=== PATIENT | male | born 1965 | race Caucasian/White ===

== ENCOUNTER 2018-03-29 12:43 | Emergency (ER) | payer BC ==
--- OUTSIDE RECORDS SUMMARY | 2018-03-29 12:52 | XMS REPORT ---
:1965 External Reference #:[id number] Author Organization [email or web address] Address [address] [address] Phone [phone] Care Team Providers Name Role Phone Alexx Gilliam MD Primary Care Physician Unavailable Payers Type Date Identification Numbers Payment Provider Subscriber Commercial Policy Number: [id number] [employer] Jasmyn Bell PayID: [id number] [address] [address] [place] [address] Problems Description No Information Family History Date Family Member(s) Problem(s) Comments General Heart Disease Social History Type Date Description Comments Lives With Spouse 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 ETOH Use Denies alcohol use Smoking Patient has never smoked Exercise Type/Frequency Exercises regularly Allergies, Adverse Reactions, Alerts Date Description Reaction Status Severity Comments 09/29/2015 Penicillin active 03/19/2018 Erythromycin active stomach issues Medications Medication Date Status Form Strength Qnty SIG Indications Ordering Provider Naproxen Active Unknown No Active 09/29/2015 Hx Unknown Medications - 01/21/2018 Medications Administered in Office Medication Date Status Form Strength Qnty SIG Indications Ordering Provider Depomedrol Administered Injection Zac F 40MG 018 MD Hernando Vital Signs Date Vital Result Comment 03/19/2018 Height 71.5 inches 5'11.50" Weight 197.00 lb Heart Rate 60 /min BP Systolic Sitting 124 mmHg BP Diastolic Sitting 62 mmHg Respiratory Rate 16 /min Body Temperature 97.1 F Pain Level 3 BMI (Body Mass Index) 27.1 kg/m2 03/04/2018 Height 71.5 inches 5'11.50" Weight 197.00 lb Heart Rate 76 /min BP Systolic 110 mmHg BP Diastolic 68 mmHg Body Temperature 97.8 F Pain Level 6 with use BMI (Body Mass Index) 27.1 kg/m2 01/21/2018 Height 71.5 inches 5'11.50" Weight 197.00 lb Heart Rate 64 /min Respiratory Rate 14 /min Body Temperature 97.6 F Pain Level 6 BMI (Body Mass Index) 27.1 kg/m2 09/29/2015 Height 72 inches 6'0" Weight 195.00 lb Heart Rate 86 /min BP Systolic Sitting 128 mmHg BP Diastolic Sitting 88 mmHg BMI (Body Mass Index) 26.4 kg/m2 Results Description No Information Procedures Date CPT Code Description Status 01/21/2018 86275 Inject/Drain Joint/Bursa Major Completed Encounters Type Date Location Provider CPT E/M Dx Office Visit 03/04/2018 [facility], [address] M75.51 2:45p [place] [facility] S46.011D S46.111D Office Visit 01/21/2018 2:00p [facility], [address] M75.51 [facility] [place] [facility] Office Visit 09/29/2015 11:00a [facility] Fitzgerald, [address]57 M77.02 Of [facility] AT [facility] Plan of Care Future Appointment(s):04/15/2018 3:15 pm - Zac Vlilagomez MD at [facility] [place]/2018 - [facility] Villagomez, MDM75.51 Bursitis of right shoulderFollow up:Follow up: to ORS46.011D Strain of musc/tend the rotator cuff of right shoulder, subsS46.111D Strain of musc/fasc/tend long hd bicep, right arm, subs
[2018-03-29 14:02] VITALS: BP 137/65
--- NOTE | 2018-03-29 14:11 | UC ---
Skin Complaint HPI - HPI Summary HPI Summary: 52 y/o male presents to the urgent care c/o tick bite in his left wrist he noticed about 2hrs ago and he removed it. Tick is very small and was not engorged. He also had a tick bite about 14 week ago, but he didn't get any medical assistance. Pt denies fever, SOB, chest pain, joint pains, BLANCHARD, abdominal pain, N/V/D - History of Current Complaint Time Seen by Provider: 03/29/18 13:58 Stated Complaint: TICK BITE Hx Obtained From: Patient Onset/Duration: Sudden Onset, Lasting Hours - 2 hrs, Resolved - removed tick Skin Exposure Onset/Duration: Hours Ago - 2 hrs ago Timing: Constant Onset Severity: Mild Current Severity: Mild Pain Intensity: 0 Pain Scale Used: 0-10 Numeric Location: Discrete - left wrist Character: Pruritus, Redness Aggravating Factor(s): Touch - touch Alleviating Factor(s): Other - removal of tick Related History: Possible Reaction to: Insect - Allergy/Home Medications Allergies/Adverse Reactions: Allergies Allergy/AdvReac Type Severity Reaction Status Date / Time erythromycin base Allergy GI Upset Verified 03/29/18 13:59 Penicillins Allergy Rash Verified 03/29/18 13:59 Review of Systems Constitutional: Negative Skin: Rash - left wrist tick bite Eyes: Negative ENT: Negative Respiratory: Negative Cardiovascular: Negative Gastrointestinal: Negative Genitourinary: Negative Motor: Negative Neurovascular: Negative Musculoskeletal: Negative Neurological: Negative Psychological: Negative Is Patient Immunocompromised?: No All Other Systems Reviewed And Are Negative: Yes PMH/Surg Hx/FS Hx/Imm Hx Previously Healthy: Yes - Pt denies PMHX - Surgical History Surgical History: Yes Surgery Procedure, Year, and Place: LEFT KNEE X2 OR[place]OSCOPIC, 2008, 2010, [facility] CHEST SURGERY TO REMOVE INFECTED SAC, 2009, [place] VASECTOMY, 1997 - Family History Known Family History: Positive: Cardiac Disease, Hypertension - Social History Occupation: Employed Full-time Lives: With Family Alcohol Use: None Substance Use Type: None Smoking Status (MU): Never Smoked Tobacco Physical Exam - Summary Physical Exam Summary: Vital Signs Reviewed: Yes General: well developed, well nourished female sitting in the examining table w/ o any apparent distress. Eyes: Positive: Conjunctiva Clear - PERRLA, EOMI ENT: Positive: Normal ENT inspection, Hearing grossly normal, Pharynx normal, TMs normal Neck: Positive: Supple, Nontender, No Lymphadenopathy Respiratory: Positive: Chest nontender, Lungs clear, Normal breath sounds Cardiovascular: Positive: RRR, No Murmur, Pulses Normal Abdomen Description: Positive: Nontender, No Organomegaly, Soft. Negative: CVA Tenderness (R), CVA Tenderness (L) Bowel Sounds: Positive: Present Musculoskeletal: Positive: Strength Intact, ROM Intact, No Edema Neurological Exam: Normal Psychological Exam: Normal Skin: Positive: rashes - Lateral aspect of eft wrist with tick bite with surrounding erythema, non tender to palpation. tick no longer present, no swelling or drainage observed. Triage Information Reviewed: Yes Course/Dx - Course Course Of Treatment: 52 y/o male presents to the urgent care c/o tick bite in his left wrist he noticed about 2hrs ago and he removed it. Tick is very small and was not engorged. He also had a tick bite about 14 week ago, but he didn't get any medical assistance. Pt denies fever, SOB, chest pain, joint pains, BLANCHARD, abdominal pain, N/V/D. Hx obtained. Pt w/ Lateral aspect of eft wrist with tick bite with surrounding erythema, non tender to palpation. tick no longer present, no swelling or drainage observed on examination.Antibiotic prophylaxis with Doxycycline given to the patient to prevent lyme Disease.. Pt tolerated well medication. Pt advised to observe the area for the development or Erythema Migrans for up to 30 days following exposure. Advised if he develops fever or erythema Migrans to return to the clinic or PCP for further treatment .Pt understood and agreed with plan of care. - Differential Diagnoses - Skin Complaint Differential Diagnoses: Abscess, Cellulitis, MRSA, Tick Born Illness, Other - insect bite , bee sting - Diagnoses Provider Diagnoses: 1- left wrist tick bite Discharge - Sign-Out/Discharge Documenting (check all that apply): Discharge/Admit/Transfer - D/C home - Discharge Plan Condition: Stable Disposition: HOME Patient Education Materials: Tick Bite (ED) Referrals: Alexx Gilliam MD [Primary Care Provider] - 2 Weeks [place] BLACK,Dameon Moran [Medical Doctor] - If Needed Additional Instructions: 1- Please observe the area for the development or Erythema Migrans for upto 30 days following exposure. Components of the tick saliva can cause transient erythema that should not be confused with Erythema Migrans. If you develop the bull's eye rash, fever, joint pains please return to the urgent care or f/u with your PCP for further management. 2-Antibiotic prophylaxis with Doxycycline was given to you today to prevent lyme Disease. Lyme serology can be drawn in 2 weeks with your PCP to r/o Lyme disease since there is probability of negative results at early exposure. - Billing Disposition and Condition Condition: STABLE Disposition: Home
[2018-03-29] MEDS ORDERED: DOXYcycline CAP(*) 100 MG PO ONE (14:12)
== END 2018-03-29 14:20 | disposition home or self-care (01) ==
LOC: UCCORT 12:43
DX: S60.862A Insect bite (nonvenomous) of left wrist, initial encounter (principal); W57.XXXA Bitten or stung by nonvenomous insect and other nonvenomous arthropods, initial encounter; Y92.9 Unspecified place or not applicable; Z88.3 Allergy status to other anti-infective agents; Z88.0 Allergy status to penicillin
CPT/HCPCS: 99212; A9270-GY; G0463

== ENCOUNTER 2018-04-03 08:46 | Day surgery (SDC) | payer BC ==
[~2018-04-03 08:46] MED LIST: Buffered Lidocaine 0.9% SYRIN* 5 ML/SYR SYRINGE INTRADERM ONE; Dexamethasone IV* 4 MG/ML 1 ML (4 MG) IV SLOW PU ONE; Famotidine IV* 10 MG/ML 2 ML (20 mg) IV ONE; Ondansetron ODT TAB* 4 MG PO ONE
[2018-04-03] MEDS ORDERED: Famotidine IV* 10 MG/ML 2 ML (20 mg) ONE (08:55)
[2018-04-03] MEDS ORDERED: Ondansetron ODT TAB* 4 MG ONE (08:56)
[2018-04-03] MEDS ORDERED: Clindamycin 900 MG IVPREMIX(* 900 MG/50 ML SDV IV ONE (08:56)
[2018-04-03] MEDS ORDERED: Dexamethasone IV* 4 MG/ML 1 ML (4 MG) ONE (08:56)
[2018-04-03] MEDS ORDERED: Midazolam* 1 MG/ML 5 ML VIAL (5 MG) ONE (09:32)
[2018-04-03] MEDS ORDERED: Atracurium* 10 MG/ML 10 ML VIAL ONE (09:32)
[2018-04-03] MEDS ORDERED: fentaNYL* 50 MCG/ML 2 ML VIAL (100 MCG VIAL) ONE (09:32)
[2018-04-03] MEDS ORDERED: Propofol* 10 MG/ML 20 ML BTL IV PUSH ONE (09:33)
[2018-04-03] MEDS ORDERED: EPINEPHRINE 1 MG/ML 1 ML VIAL ONE (09:54)
[2018-04-03] MEDS ORDERED: Bupivacaine 0.5% SDV PF* 30ML VIAL ONE (09:54)
[2018-04-03] MEDS ORDERED: ROPIVACAINE 5 MG/ML 30 ML BTL (0.5%) ONE (10:34)
[2018-04-03] MEDS ORDERED: Glycopyrrolate IV* 0.2 MG/ML 1 ML VIAL ONE (10:56)
[2018-04-03] MEDS ORDERED: DiMENhydriNATE IV* 50 MG/ML VIAL IV PUSH PRN (11:43)
[2018-04-03] MEDS ORDERED: Ondansetron INJ* 2 MG/ML VIAL IV PRN (11:43)
[2018-04-03] MEDS ORDERED: oxyCODONE/Acetamin 5/325 MG* TAB PO PRN (11:43)
[2018-04-03] MEDS ORDERED: Naloxone* 0.4 MG/ML 1 ML VIAL IV PRN (11:43)
[2018-04-03] MEDS ORDERED: HYDROmorphone INJ* 1 MG/ML CARPUJECT SYRINGE IV PRN (11:43)
[2018-04-03] MEDS ORDERED: fentaNYL* 50 MCG/ML 2 ML VIAL (100 MCG VIAL) IV PRN (11:43)
[2018-04-03 14:18] VITALS: BP 123/74
--- NOTE | 2018-04-07 21:41 | OP ---
DATE OF OPERATION: 04/03/18 - [facility] DATE OF : 67 SURGEON: Zac Villagomez MD WASTE CHOPPER: ARLIN Hernandez A physician cafeteria assistant was required for the length of the procedure for positioning, assistance with instrumentation, and closure. ANESTHESIOLOGIST: Dr. Ghulam Padilla ANESTHESIA: General anesthesia, interscalene block regional anesthesia. PRE-OP DIAGNOSES: 1. Right shoulder proximal biceps tendinitis and possible superior labrum tear. 2. Right shoulder subacromial bursitis and mild acromioclavicular joint arthritis. 3. Mild right shoulder glenohumeral joint osteoarthritis. POST-OP DIAGNOSES: 1. Right shoulder proximal biceps tendinitis. 2. Right shoulder subacromial bursitis and impingement. 3. Right shoulder acromioclavicular joint osteoarthritis. 4. Mild right shoulder glenohumeral joint osteoarthritis. 5. Right shoulder capsulitis. OPERATIVE PROCEDURE: 1. Right shoulder evaluation under anesthesia. 2. Right shoulder manipulation under anesthesia. 3. Right shoulder arthroscopic subacromial decompression. 4. Right shoulder arthroscopic distal clavicle resection. 5. Right shoulder arthroscopic limited debridement including release of biceps tendon. ANTIBIOTICS: Clindamycin 900 mg IV. IV FLUIDS: 1000 cc crystalloid. EYTD-AD-HYAP TIME: 49 minutes. ARTHROSCOPY FLUID: 4.5 bags, each with 3 L in them for a total of 13.5 L. SPECIMEN: None. IMPLANTS: None. COMPLICATIONS: None. ESTIMATED BLOOD LOSS: Minimal. 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 The patient responded insufficiently to the nonoperative management and opted for surgery. I made the above mentioned diagnoses preoperatively. We spoke about evaluation and treatment of the patient's biceps and superior labrum. I offered the patient biceps tenotomy or open proximal biceps tenodesis. He considered and opted for tenotomy. Discussed risks and potential complications of surgery including bleeding, infection, nerve or blood vessel injury, shoulder pain, stiffness, osteoarthritis. DESCRIPTION OF PROCEDURE: In preoperative holding, the patient signed a written consent. Operative extremity was marked in preoperative holding. The patient underwent a regional interscalene nerve block by Dr. Padilla. The patient was then taken to the operating room. The patient was laid supine and general anesthesia was instituted. A mini time-out was performed. Evaluation under anesthesia demonstrated limitations, severe on forward and internal rotation. I, therefore, decided to do a manipulation under anesthesia. I obtained an improvement of 30 to 40 additional degrees of range of motion of both forward flexion and internal rotation. The final range of motion on the table was 180 degrees of forward flexion, 90 degrees of external and 80 degrees of internal rotation. The patient was then placed in the lateral decubitus position with the right shoulder side up, axillary roll. All bony prominences padded. Right shoulder on longitudinal traction, 15 pounds, appropriate forward flexion and abduction. Prepped and draped. Surgical time-out performed. Spinal needle was placed into the right shoulder glenohumeral joint from posterior. 30 cc normal saline infused. Right shoulder posterior portal made per standard technique. Started diagnostic arthroscopy. No articular cartilage injuries. No spurs noted or significant thinning of cartilage noted. No rotator cuff tendon injury appreciated. I looked at the subscapularis in a variety of positions. Entered from anterior with an arthroscopic shaver after establishing an anterior glenohumeral joint portal under direct visualization. Evaluated the biceps tendon and superior labrum. The patient had a thick sleeve of red synovitic tissue along the biceps tendon proximally consistent with a diagnosis of proximal biceps tendinosis and tendinitis. There was also some inflamed tissue about the outlet where the biceps tendon exited the articular space, joint. Therefore, the biceps appeared to be a clear pain generator. I made the decision to release the biceps tendon. I entered an arthroscopic scissors and cut the biceps near its origin. I used an arthroscopic shaver to smooth out the superior labrum. No loose bodies in the axillary recess or any significant pathology about the glenohumeral joint. I next withdrew all fluid and instruments from the glenohumeral joint and moved to the subacromial space from anterior and posterior. There is bursitis. I established a lateral subacromial portal and use it to enter my arthroscopic shaver and debrided a significant amount of bursitis tissue on that layer. I evaluated the rotator cuff and appreciated no tear. I then performed a subacromial decompression, cleaning off the undersurface with a vapor cautery device and then using a tata to dissect, resect up to 8 mm of the inferior aspect of the anterior acromion. I then used a cautery to debride the bursitic tissue about the AC joint and removed 8 mm of the distal end of the clavicle. I next removed instruments and fluid from the subacromial space. Closed skin incisions with [id number] in 12 stitches using nylon 4.0 suture. Xeroform, 4 x 4s, ABDs, foam tape. Sling without abduction pillow. Cooling unit. DISPOSITION: The patient was extubated and transferred to the PACU. The patient was sent home with Percocet as needed for pain control and enteric- coated aspirin b.i.d. x14 days for DVT prophylaxis. The patient will follow up in clinic 10 to 14 days postoperatively. He is to start physical therapy immediately as soon as he can get an appointment. He will follow wound care instructions and he will wean out of the sling as soon as possible. [id number]/CPS #: [id number] MTDD
== END 2018-04-03 14:19 | disposition home or self-care (01) ==
LOC: OR 08:46
PROVIDERS: ATTEND Orthopaedic Surgery
DX: M75.51 Bursitis of right shoulder (principal); M75.21 Bicipital tendinitis, right shoulder; M75.41 Impingement syndrome of right shoulder; M19.011 Primary osteoarthritis, right shoulder; M75.01 Adhesive capsulitis of right shoulder; R00.2 Palpitations; G89.18 Other acute postprocedural pain
CPT/HCPCS: A9270-GY; J1100; J2250; J2704; J2795; J3010

== ENCOUNTER 2019-05-19 08:56 | Emergency (ER) | payer BC ==
[2019-05-19 09:13] VITALS: BP 129/80
--- NOTE | 2019-05-19 10:02 | UC ---
Headache HPI - HPI Summary HPI Summary: 53-year-old male comes in with a chief complaint of headache. 2 days ago the patient woke up with the headache. The day before he felt well. Headache is in the right side of his head into the right I. At its worse it's about an 8 out of 10. With taking [id number] medications he get about a 4 out of 10 but the headache never goes away. Patient does not have a history of migraines or chronic headaches. Headache it's worse with coughing or laying down. Is keeping him awake at night. He notices partial blurry vision in the right eye. He reports blurred vision of the left field of the right I. Denies any photophobia or difficulty with speech or weakness or numbness. - History Of Current Complaint Chief Complaint: UCHeadache Stated Complaint: HEADACHE Time Seen by Provider: 05/19/19 09:42 Pain Intensity: 8 - Allergies/Home Medications Allergies/Adverse Reactions: Allergies Allergy/AdvReac Type Severity Reaction Status Date / Time erythromycin base Allergy GI Upset Verified 05/19/19 09:14 Penicillins Allergy Rash Verified 05/19/19 09:14 Home Medications: Home Medications NK [No Home Medications Reported] 05/19/19 [History Confirmed 05/19/19] PMH/Surg Hx/FS Hx/Imm Hx Previously Healthy: Yes - Surgical History Surgical History: Yes Surgery Procedure, Year, and Place: LEFT KNEE X2 ORTHOSCOPIC, 2008, 2010, [facility] CHEST SURGERY TO REMOVE INFECTED SAC, 2009, [facility]. VASECTOMY, 1997 - Family History Known Family History: Positive: Cardiac Disease, Hypertension - Social History Alcohol Use: None Substance Use Type: None Smoking Status (MU): Never Smoked Tobacco Review of Systems All Other Systems Reviewed And Are Negative: Yes Constitutional: Positive: Negative Skin: Positive: Negative Eyes: Positive: Blurred Vision ENT: Positive: Negative Respiratory: Positive: Negative Cardiovascular: Positive: Negative Gastrointestinal: Positive: Negative Motor: Positive: Negative Neurovascular: Positive: Negative Musculoskeletal: Positive: Negative Neurological: Positive: Headache Psychological: Positive: Negative Is Patient Immunocompromised?: No Physical Exam Triage Information Reviewed: Yes Appearance: Well-Appearing, Well-Nourished, Pain Distress - MILD Vital Signs: Initial Vital Signs Temp 97.8 F 05/19/19 09:11 Pulse 80 05/19/19 09:11 Resp 18 07/22/19 09:11 BP 129/80 05/19/19 09:11 Pulse Ox 100 05/19/19 09:11 Vital Signs Reviewed: Yes Eyes: Positive: Other: - On exam patient reports his left visual field of his right it is blurred. Denies any other vision changes.. Negative: Conjunctiva Inflamed, Discharge ENT: Positive: Pharynx normal, TMs normal, Other - Temples are nontender to palpation. Neck: Positive: Supple Respiratory: Positive: Lungs clear, Normal breath sounds, No respiratory distress Cardiovascular: Positive: RRR Musculoskeletal Exam: Normal Musculoskeletal: Positive: Strength Intact, ROM Intact Neurological: Positive: Alert, Muscle Tone Normal, Other: - Patient reports blurred vision in the left visual field of the right I. No other focal neurologic deficits found on examination. Psychological Exam: Normal Psychological: Positive: Age Appropriate Behavior Skin Exam: Normal Headache Course/Dx - Course Course Of Treatment: Due to the intensity of the headache the duration of the headache and the blurred vision I recommended further evaluation in the emergency department. Patient prefers to go by POV. - Differential Dx/Diagnosis Provider Diagnosis: Headache, Blurred vision, right eye Discharge - Sign-Out/Discharge Documenting (check all that apply): Patient Departure All imaging exams completed and their final reports reviewed: No Studies - Discharge Plan Condition: Stable Disposition: HOME-RECOMMEND TO ED Referrals: Alexx Gilliam MD [Primary Care Provider] - Additional Instructions: GO DIRECTLY TO THE EMERGENCY DEPARTMENT FOR FURTHER EVALUATION OF YOUR HEADACHE. - Billing Disposition and Condition Condition: STABLE Disposition: Home-Recommend to ED
== END 2019-05-19 10:09 | disposition home health service (06) ==
LOC: UCEAST 08:56
DX: R51 Headache (principal); H53.8 Other visual disturbances; Z88.0 Allergy status to penicillin
CPT/HCPCS: 99212; G0463

== ENCOUNTER 2019-05-19 10:29 | Emergency (ER) | payer BC ==
[2019-05-19] MEDS ORDERED: diPHENhydraMINE PO* 25 MG PO ONE (12:14)
[2019-05-19] MEDS ORDERED: NS 0.9% 1000 ML** 1,000 ML IV ONE (12:14)
[2019-05-19] MEDS ORDERED: PROCHLORPERAZINE INJ 5 MG/ML 2 ML VIAL IV ONE (12:14)
[2019-05-19] MEDS ORDERED: Ketorolac INJ* 30 MG/ML 1 ML VIAL IV PUSH ONE (12:15)
--- NOTE | 2019-05-19 12:15 | ED ---
Headache - HPI Summary HPI Summary: Pt. is a 53 y.o male who presents to the ER for headaches x 3 days. Pt. states pain is located behind his right eye and temporal region. He notes mild blurred vision on the left. Pt. notes he woke up with h/a 3 days ago and it slowly progressed. Pt. denies hx of migraines. HE has no past medical hx. Pt. denies injury, recent illness, fever, neck pain, numbness, tingling, weakness. Pt. states he has tried numerous OTC analgesics and his 's migraine medication without improvement. Sxs are moderate in severity. No current modifying factors. Denies recent tick bites or rashes. - History Of Current Complaint Chief Complaint: EDHeadache Stated Complaint: HEADACHE SINCE SUNDAY PER PT Time Seen by Provider: 05/19/19 11:46 Hx Obtained From: Patient - Allergies/Home Medications Allergies/Adverse Reactions: Allergies Allergy/AdvReac Type Severity Reaction Status Date / Time erythromycin base Allergy GI Upset Verified 05/19/19 09:14 Penicillins Allergy Rash Verified 05/19/19 09:14 PMH/Surg Hx/FS Hx/Imm Hx Previously Healthy: Yes Endocrine/Hematology History: Denies: Hx Diabetes Cardiovascular History: Reports: Other Cardiovascular Problems/Disorders - skips a beat at times, neg testing Denies: Hx Hypertension, Hx Pacemaker/ICD History: Denies: Hx Renal Disease Musculoskeletal History: Reports: Hx Bursitis - right shoulder Denies: Other Musculoskeletal History Sensory History: Reports: Hx Contacts or Glasses - reading glasses Denies: Hx Hearing Aid Opthamlomology History: Reports: Hx Contacts or Glasses - reading glasses Psychiatric History: Denies: Hx Panic Disorder - Surgical History Surgery Procedure, Year, and Place: LEFT KNEE X2 ORTHOSCOPIC, 2008, 2010, [facility]. CHEST SURGERY TO REMOVE INFECTED SAC, 2009, [place] VASECTOMY, 1997 Hx Anesthesia Reactions: No Infectious Disease History: No Infectious Disease History: Denies: Traveled Outside the [place] in Last 30 Days - Family History Known Family History: Positive: Cardiac Disease, Hypertension - Social History Occupation: Employed Full-time Lives: With Family Alcohol Use: None Substance Use Type: Reports: None Smoking Status (MU): Never Smoked Tobacco Review of Systems Constitutional: Negative Negative: Fever, Chills Positive: Photophobia, Blurred Vision ENT: Negative Cardiovascular: Negative Respiratory: Negative Gastrointestinal: Negative Genitourinary: Negative Musculoskeletal: Negative Skin: Negative Positive: Headache. Negative: Weakness, Paresthesia, Numbness, Syncope All Other Systems Reviewed And Are Negative: Yes Physical Exam Triage Information Reviewed: Yes Vital Signs On Initial Exam: Initial Vitals Temp Pulse Resp BP Pulse Ox 97.4 F 61 18 143/85 100 05/19/19 10:30 05/19/19 10:30 05/19/19 10:30 05/19/19 10:30 05/19/19 10:30 Vital Signs Reviewed: Yes Appearance: Positive: Well-Appearing - Pt sitting up in bed in NAD. Skin: Positive: Warm, Dry Head/Face: Positive: Normal Head/Face Inspection Eyes: Positive: Normal, EOMI, JOSE E ENT: Positive: Pharynx normal, TMs normal Neck: Positive: Supple, Nontender. Negative: Nuchal Rigidity Respiratory/Lung Sounds: Positive: Clear to Auscultation, Breath Sounds Present Cardiovascular: Positive: Normal, RRR Musculoskeletal: Positive: Normal, Strength/ROM Intact Neurological: Positive: Normal, Sensory/Motor Intact, Alert, Oriented to Person Place, Time, CN Intact II-III, Normal Gait, Finger to Nose - normal, Facial Symmetry, Speech Normal. Negative: Facial Droop, Pronator Drift Present Psychiatric: Positive: Affect/Mood Appropriate - Meme Coma Scale Best Eye Response: 4 - Spontaneous Best Motor Response: 6 - Obeys Commands Best Verbal Response: 5 - Oriented Coma Scale Total: 15 Diagnostics - Vital Signs Vital Signs Temp Pulse Resp BP Pulse Ox 05/19/19 10:30 97.4 F 61 18 143/85 100 - Laboratory Result Diagrams: 05/19/19 12:21 05/19/19 12:21 Lab Statement: Any lab studies that have been ordered have been reviewed, and results considered in the medical decision making process. Headache Course/Dx - Course Course Of Treatment: Pt. presenting with the above sxs. Afebrile with stable VS. Pt. has no neuro deficits on exam. Given new onset h/a and vision blurriness , will obtain labs and brain ct to r/o mass, bleeding, signs of recent stroke. Pt. given migraine cocktail consisting of fluids, toradol, benadryl, and compazine. Labs are unremarkable other than mildly elevated crp, sed rate is normal. Brain ct is negative per radiology. On re-exam pt.'s sxs have completely resolved and he is feeling much better. WIll have him fu with pcp. To increase fluids. Will return to ER if sxs change or worsen. Pt. understands and agrees with plan. Pending lyme titer. - Diagnoses Differential Diagnosis/HQI/PQRI: Migraine, Sinus Headache, Subarachnoid Hemorrhage, Temporal Arteritis, Viral Syndrome Provider Diagnoses: Cephalgia Discharge - Sign-Out/Discharge Documenting (check all that apply): Patient Departure Patient Received Moderate/Deep Sedation with Procedure: No - Discharge Plan Condition: Improved Disposition: HOME Patient Education Materials: Acute Headache (ED) Referrals: Alexx Gilliam MD [Primary Care Provider] - Additional Instructions: Follow up PCP within one week for recheck Increase fluids and rest Return to ER if symptoms change or worsen - Billing Disposition and Condition Condition: IMPROVED Disposition: Home
[2019-05-19 12:43] LABS: ABS Lymphocytes 1.1 10^3/ul (1.0-4.8); ABS Monocytes 0.7 10^3/ul (0-0.8); ABS Neutrophils 4.3 10^3/ul (1.5-7.7); Eosinophil % 0.8 %; Hematocrit 45 % (42-52); Hemoglobin 15.8 g/dL (14.0-18.0); Lymphocyte % 17.4 %; Mean Corpuscular HGB Conc 36 g/dL (31-36); Mean Corpuscular Hemoglobin 30 pg (27-31); Mean Corpuscular Volume 86 fL (80-94); Mean Platelet Volume 7.5 fL (7.4-10.4); Nucleated Red Blood Cells % 0.2; Platelet Count 207 10^3/uL (150-450); Red Blood Count 5.19 10^6 /uL (4.18-5.48); Red Cell Distribution Width 14 % (10-15); White Blood Count 6.2 10^3/uL (3.5-10.8)
[2019-05-19 12:48] LABS: Albumin 4.5 g/dL (3.2-5.2); Albumin/Globulin Ratio 1.4 (1-3); BUN/Creatinine Ratio 14.6 (8-20); C Reactive Protein 34.55 mg/L (<8.01); Calcium 9.5 mg/dL (8.6-10.3); EGFR African American 99.5 (>60); EGFR Non-African American 82.3 (>60); Globulin 3.2 g/dL (2-4); Potassium 4.4 mmol/L (3.5-5.0); Total Bilirubin 1.6 mg/dL (0.2-1.0); Total Protein 7.7 g/dL (6.4-8.9)
[2019-05-19 13:21] VITALS: BP 116/69
[2019-05-19 14:47] LABS: Erythrocyte Sed Rate 16 mm/Hr (0-19)
[2019-05-21 00:01] LABS: B garinii/B afzelii PCR Negative (Negative); B mayonii PCR Negative (Negative)
== END 2019-05-19 15:09 | disposition home or self-care (01) ==
LOC: ED 10:29
DX: R51 Headache (principal); Z88.1 Allergy status to other antibiotic agents; Z88.0 Allergy status to penicillin
CPT/HCPCS: 36415; 70450; 80053; 85025; 85652; 86140; 87476; 87798; 96361; 96374; 96375; 99282; A9270-GY; J0780; J1885

== ENCOUNTER 2019-05-22 07:00 | Emergency (ER) | payer BC ==
--- NOTE | 2019-05-22 07:31 | UC ---
Eye Complaint HPI - HPI Summary HPI Summary: 53 year old male with eye complaint. Patient was seen at the [facility] for a severe headache that was on day 3, he was sent to [facility] ED and treated for a migraine H/A. He states he was feeling better until that night when he states he started with running temps of 101-102. also c/o pain that is above his R eye today and some blurry vision. In the days before, the pain was on the R side of his head. Also of note is an area on his L wrist that is red, blanchable and non-painful that was were he was wearing a new wrist watch. Also has had a fever that broke today. No vision loss. Also states to have had 3 tick bites at least this year. Very active outdoors. No PCP he states. Nothing improves symptoms. Bending over worsens pressure in the eye and sinus area around the eye. [ End ] - History of Current Complaint Stated Complaint: RIGHT EYE PAIN,FEVER Time Seen by Provider: 05/22/19 07:27 Hx Obtained From: Patient Onset/Duration: Gradual Onset Severity Initially: Moderate Severity Currently: Moderate Alleviating Factor(s): Nothing Associated Signs And Symptoms: Positive: Fever. Negative: Photophobia, Drainage (Clear), Drainage (Purulent), Swelling - Risk Factors Penetrating Injury Risk Factor: Negative - Allergies/Home Medications Allergies/Adverse Reactions: Allergies Allergy/AdvReac Type Severity Reaction Status Date / Time Penicillins Allergy Rash Verified 05/19/19 09:14 erythromycin base AdvReac GI Upset Verified 05/22/19 07:35 Home Medications: Home Medications Acetaminophen [Acetaminophen Extra Strength] 1,000 mg PO BID PRN 05/22/19 [ History Confirmed 05/22/19] Ibuprofen 600 mg PO Q2HR PRN 05/22/19 [History Confirmed 05/22/19] PMH/Surg Hx/FS Hx/Imm Hx Previously Healthy: Yes - Surgical History Surgical History: Yes Surgery Procedure, Year, and Place: LEFT KNEE X2 ORTHOSCOPIC, 2008, 2010, [place] [facility]. CHEST SURGERY TO REMOVE INFECTED SAC, 2009, [place]. VASECTOMY, 1997 - Family History Known Family History: Positive: Cardiac Disease, Hypertension - Social History Alcohol Use: None Substance Use Type: None Smoking Status (MU): Never Smoked Tobacco Review of Systems All Other Systems Reviewed And Are Negative: Yes Constitutional: Positive: Fever, Fatigue Skin: Positive: Rash Eyes: Positive: Blurred Vision, Eye Redness ENT: Positive: Sinus Pain/Tenderness Neurological: Positive: Headache Is Patient Immunocompromised?: No Physical Exam Triage Information Reviewed: Yes Appearance: Well-Appearing, No Pain Distress, Well-Nourished Vital Signs Reviewed: Yes Eye Exam: Normal ENT Exam: Normal ENT: Positive: Hearing grossly normal, Sinus tenderness - tenderness right frontal / ethmoid area to palpation.. Negative: TM bulging, TM dull, TM red, Tonsillar swelling, Tonsillar exudate Dental Exam: Normal Neck exam: Normal Respiratory Exam: Normal Cardiovascular Exam: Normal Musculoskeletal Exam: Normal Neurological Exam: Normal Psychological Exam: Normal Skin: Positive: Rashes - left distal lateral wrist with erythematous [place] with darkening in the center, warm and tender, 3x2 cm. no streaking. no discharge or ecchymosis. Images Front/Back of Body, Lg ([place]): 1 - see skin description Eye Complaint Course/Dx - Course Course Of Treatment: At this time patient still with fever at home, eye pressure ( he was told he needs to go to [facility] and if needs to go to ED to get consult he should, refer to Dr Quitnanilla to call today) , fatigue, what could also be EM with vague other complaints with numerous exposures to Ticks -- i will advise to treat for Lyme at this time as these tests for Lyme can have false negative. Patient aware and agree to plan and side effects of doxy. advised to follow up with PCP [facility] as well for potential follow up labs . He and are aware and agree with plan at this time. Go to ED if Sx worsen or BLANCHARD worsens. I did review the labs and notes with CT results from the ED notes. No neuro deficits at this time. Advised OTC analgesics for his headache. If bacterial sinus infection the doxy should cover that as well. - Differential Dx/Diagnosis Differential Diagnosis/HQI/PQRI: Conjunctivitis, Corneal Abrasion, Foreign Body , Keratitis, Periorbital Cellulitis, Orbital Cellulitis, Uveitis, Other - sinus infection, Lyme, viral illness, auto-immune disorder, arteritis Provider Diagnosis: Erythema migrans (Lyme disease) Discharge - Sign-Out/Discharge Documenting (check all that apply): Patient Departure All imaging exams completed and their final reports reviewed: No Studies - Discharge Plan Condition: Good Disposition: HOME Prescriptions: DOXYcycline CAP(*) [DOXYcycline 100MG CAP(*)] 100 mg PO BID #28 cap Patient Education Materials: Lyme Disease (ED) Referrals: Alexx Gilliam MD [Primary Care Provider] - 4 Days Ghulam Morrissey MD [Medical Doctor] - As Soon As Possible (Optho referral ) Additional Instructions: Based on your constellation of symptoms and history of 3 tick bites with what appears to be erythema migrans on the left arm we will advise to start antibiotics. Please go to Emergency room if symptom worsen. - Billing Disposition and Condition Condition: GOOD Disposition: Home
[2019-05-22 07:32] VITALS: BP 136/73
== END 2019-05-22 08:20 | disposition home or self-care (01) ==
LOC: UCCORT 07:00
DX: A69.20 Lyme disease, unspecified (principal); Z88.0 Allergy status to penicillin
CPT/HCPCS: 99212; G0463